=== PATIENT | male | born 1995 | race Caucasian/White ===

== ENCOUNTER 2024-11-07 09:47 | Emergency (ER) | payer SELFPAY ==
[~2024-11-07] VITALS: Ht 180.3 cm; Wt 109.0 kg
--- NOTE | 2024-11-07 10:03 | Physician Documentation ---
History of Present Illness ~ Chief Complaint: Laceration Stated Complaint: FINGER LAC Time Seen by MD: 09:56 Primary Medical Doctor: [facility] HPI 8-year-old male presents to the ED with a complaint of a right middle finger laceration which he incurred yesterday via a knife. States he would accompany your earlier thought he could handle on his own. Bleeding is mostly controlled at this time states he is up-to-date in his tetanus. Denies any numbness or tingling Medication Reconciliation Allergies: Coded Allergies: No Known Allergies (Unverified , 12/09/09) Review of Systems All Other Systems at this time: Reviewed and Negative ROS As stated above in the HPI, otherwise all systems are reviewed and negative. Physical Exam Vital Signs: Temperature: 97.1, Source: Temporal, Heart Rate: 89, Respiratory Rate: 18, BP: 108/74, Pulse Oximetry: 99, Weight: 109.050 Physical Exam General: Alert, no apparent distress. Neck: Full range of motion. Extremities: 2 cm laceration on the anterior aspect of right middle Neurologic: Oriented x4. Psychiatric: Normal mood and affect. Skin: Normal color, warm and dry. No edema, no ecchymosis. Procedures Laceration/Wound Repair Laceration : Anesthesia: Lidocaine Suture Size/Type: 3-0 Number of Superficial Sutures: 3 Dressing Applied: simple Tolerated Procedure Well?: yes, no complications Progress Results/Orders Results/Orders Orders - BRET MORGAN NP Laceration/I&D Tray Set Up (11/07/24 ) Completed Orders - BRET MORGAN NP Lidocaine 1% 30ml Vial (Xylocaine 1% Via (11/07/24 09:57) Vital Signs 11/07/24 09:51 Temp 97.1 Pulse 89 Resp 18 B/P (MAP) 108/74 Pulse Ox 99 Medical Decision Making Findings Wound was irrigated and approximated via sutures. The patient was advised to keep the area clean and dry. Patient tolerated procedure well Departure Disposition: 01 HOME / SELF CARE / HOMELESS Impression: Primary Impression: Laceration Condition: Stable Discharge Instructions: Laceration Care, Adult, [id number] Referrals: NO PRIMARY CARE PROVIDER (PCP) Education Educated: Patient Signature Scribe Signature: g Attestation: The note accurately reflects work and decisions made by me.Bret Baca NP 11/07/24 10:03 BRET MORGAN NP November 07, 2024 10:03
[2024-11-07] MEDS: LIDOcaine 1% 30ml preserv. free vial SQ STA (10:20)
[2024-11-07 11:17] VITALS: BP 132/98; PULSE 88; RESP 14; TEMP 97.1; O2SAT 98
== END 2024-11-07 11:20 | disposition home or self-care (01) ==
LOC: ER 09:48
DX: S61.212A Laceration without foreign body of right middle finger without damage to nail, initial encounter (principal); W26.0XXA Contact with knife, initial encounter; Y93.89 Activity, other specified; Y92.89 Other specified places as the place of occurrence of the external cause; Y99.8 Other external cause status
CPT/HCPCS: 12001; 99282; J7030; A6258; A6449